=== PATIENT | female | born 1975 | race Caucasian/White ===

== ENCOUNTER → 2018-10-03 09:52 | Outpatient (CLI) | payer OTHER, SELFPAY ==
[2018-10-03 11:34] LABS: Add Manual Diff / Slide Review NO; Basophils Percent Auto 0.5 % (0-2); Eosinophils Percent Auto 1.8 % (2-4); Hematocrit 36.8 % (36-46); Hemoglobin 12.3 g/dL (12.0-16.0); Lymphocytes Percent Auto 27.1 % (25-40); Mean Corpuscular HGB Conc 33.5 % (30-36); Mean Corpuscular Hemoglobin 30.8 PG (26-34); Monocytes Percent Auto 7.3 % (3-14); Neutrophils Absolute Auto 3300 /uL (1500-7000); Neutrophils Percent Auto 63.3 % (50-75); Platelet Count 233 X10^3/uL (150-400); Red Cell Distribution Width 13.8 % (11.6-14.8); White Blood Cell Count 5.1 X10^3/uL (4.5-11.0)
[2018-10-03 11:42] LABS: Erythrocyte Sedimentation Rate 15 MM/HR (0-20)
[2018-10-03 12:10] LABS: Alanine Aminotransferase 28 IU/L (9-52); Aspartate Aminotransferase 21 IU/L (14-36)
[2018-10-03 12:41] LABS: TSH w/ Reflex to FT4 2.65 uIU/mL (0.47-4.68)
== END ==
PROVIDERS: Family Provider Family Medicine; PCP Family Medicine; Visit Provider Registered Nurse
DX: L50.1 Idiopathic urticaria (principal)
CPT/HCPCS: 36415; 84443; 84450; 84460; 85025; 85651

== ENCOUNTER → 2018-10-19 11:00 | Outpatient (CLI) | payer OTHER, SELFPAY | PROVIDERS: PCP Family Medicine; Visit Provider Dermatology | DX: L50.8 Other urticaria (principal); Z79.899 Other long term (current) drug therapy | CPT/HCPCS: 36415; 83516; 86343 ==

== ENCOUNTER → 2019-01-20 10:58 | Outpatient (CLI) | payer OTHER, SELFPAY ==
--- NOTE | 2019-01-20 | DI.MG.S_ITS ---
BILATERAL DIGITAL SCREENING MAMMOGRAM 3D/2D WITH CAD: 01/20/2019 CLINICAL: Routine screening. Family history of breast cancer. Comparison is made to exams dated: 01/17/2018 mammogram, 12/29/2016 mammogram - [facility], and 12/22/2015 mammogram - [facility]. The tissue of both breasts is heterogeneously dense. This may lower the sensitivity of mammography. Current study was also evaluated with a Computer Aided Detection (CAD) system. No significant masses, calcifications, or other findings are seen in either breast. There has been no significant interval change. IMPRESSION: NEGATIVE There is no mammographic evidence of malignancy. A 1 year screening mammogram is recommended. This exam was interpreted at Station ID: [id number]. NOTE: For mammograms, a report in lay terms will be sent to the patient. Approximately 15% of breast malignancies will not be visualized mammographically. In the management of a palpable breast mass, a negative mammogram must not discourage biopsy of a clinically suspicious lesion. Electronically Signed By: Shayy berman/alyssa:01/20/2019 11:30:51 copy to: GUICHO DARLING letter sent: Normal Exam ACR BI-RADS Category 1: Negative 3341F
== END ==
PROVIDERS: PCP Family Medicine; Visit Provider Family Medicine
DX: Z12.31 Encounter for screening mammogram for malignant neoplasm of breast (principal); Z80.3 Family history of malignant neoplasm of breast
CPT/HCPCS: 77063; 77067

== ENCOUNTER → 2019-10-30 09:09 | Outpatient (CLI) | payer OTHER, SELFPAY ==
--- NOTE | 2019-10-30 09:10 | DI.US.S_ITS ---
PROCEDURE: US PELVIC COMPLETE INDICATIONS: PELVIC AND PERINEAL PAIN TECHNIQUE: Real-time scanning was performed of the pelvic organs, with image documentation. Additional endovaginal scanning was necessary due to incomplete visualization of the adnexal and endometrial structures by transabdominal scanning. COMPARISON: None. FINDINGS: Transabdominal scanning: Limited scanning through the kidneys shows no hydronephrosis. No pathologic free abdominal or pelvic fluid. Endovaginal scanning: Uterus: Uterus is normal in size at 8.9 x 4.8 x 4.6 cm. The endometrium measures 7 mm in combined thickness. Ovaries: Right ovary measures 3.7 x 1.7 x 1.3 cm. Left ovary measures 2.7 x 2.0 x 1.2 cm. There is a 1.8 cm avascular hypoechoic cyst in the left ovary with internal echoes and thin lacelike septations. This likely represents a hemorrhagic cyst/physiologic cyst. No internal solid components or mural nodules. IMPRESSION: Likely 1.8 cm hemorrhagic/physiologic cyst in the left ovary. Otherwise, unremarkable sonographic evaluation of the uterus and ovaries. Dictated by: Subhash Olsen M.D. on 10/30/2019 at 13:24 Approved by: Subhash lOsen M.D. on 10/30/2019 at 13:43
== END ==
PROVIDERS: PCP Family Medicine; Visit Provider Family Medicine
DX: R10.2 Pelvic and perineal pain (principal); N83.202 Unspecified ovarian cyst, left side
CPT/HCPCS: 76830; 76856

== ENCOUNTER → 2019-11-04 11:47 | Outpatient (CLI) | payer OTHER, SELFPAY ==
--- NOTE | 2019-11-04 11:54 | DI.RAD.S_ITS ---
PROCEDURE: XR PELVIS 1-2V INDICATIONS: low back/pelvic pain TECHNIQUE: Single frontal view of the pelvis acquired. COMPARISON: None. FINDINGS: Bones: No fractures or dislocations. No suspicious bony lesions. Soft tissues: Visualized bowel gas pattern is normal. No suspicious soft tissue calcifications. IMPRESSION: No trauma found. Dictated by: Lacho Richter M.D. on 11/04/2019 at 14:18 Approved by: Lacho Richter M.D. on 11/04/2019 at 14:18
== END ==
PROVIDERS: PCP Family Medicine; Referring Provider Family Medicine; Visit Provider Family Medicine
DX: M54.5 Low back pain (principal); R10.2 Pelvic and perineal pain
CPT/HCPCS: 72170

== ENCOUNTER 2019-11-14 09:33 | Emergency (ER) | payer OTHER, SELFPAY ==
--- NOTE | 2019-11-14 09:42 | DI.MRI.S_ITS ---
PROCEDURE: MR LUMBAR SPINE WO CON INDICATIONS: back pain w/ bilat radiation and inner thigh numbness TECHNIQUE: Noncontrast sagittal T1 spin echo and T2 fast echo, sagittal STIR, axial T1 and T2 fast spin echo through the lumbar spine. In cases with scoliosis, additional coronal T2 fast spin echo may be performed. COMPARISON: [facility], CT, ABDOMEN/PELVIS WITH CONTRAST, 03/18/2017, 16:57. FINDINGS: Image quality: Excellent. Alignment and Curvature: There is normal bony alignment. Bone Marrow: Marrow is of normal overall signal. No acute vertebral body compression fractures. Spinal Cord: Conus medullaris terminates at the T12 level. Visualized cord demonstrates normal signal and size. Paraspinous Soft Tissues: No paravertebral masses. L1-L2: Normal appearance. L2-L3: Normal appearance. L3-L4: Mild loss of disc height and disc desiccation. There is posterior disc bulge. The central canal is minimally narrowed. Moderate left foraminal stenosis. No right foraminal stenosis. L4-L5: Mild loss of disc height and disc desiccation. There is mild posterior disc bulge. The central canal is minimally narrowed. No foraminal stenosis. L5-S1: Preserved disc height. Mild disc desiccation. There is diffuse posterior disc bulge. There is right posterior lateral annular fissure. Mild right facet arthropathy. The central canal is patent. Mild right foraminal stenosis. Mild left foraminal stenosis. IMPRESSION: 1. Multilevel degenerative disc disease and facet arthropathy as described. 2. Minimal central canal stenosis. 3. Moderate foraminal stenosis at L3-L4 mild left and mild foraminal stenosis at L5-S1 on the right. Dictated by: Chan Thomason M.D. on 11/14/2019 at 15:46 Approved by: Chan Thomason M.D. on 11/14/2019 at 15:54
[2019-11-14 09:45] VITALS: BP 139/71; PULSE 85; RESP 16; TEMP 37.4; O2SAT 99
[2019-11-14] MEDS: ONDANSETRON 4 MG/2 ML INJ IV (09:53)
[2019-11-14] MEDS: MORPHINE 4 MG/ML INJ IV ×2 (09:53→14:49)
[2019-11-14] MEDS: methylPREDNISolone 125 MG/2 ML VIAL IV (09:53)
--- NOTE | 2019-11-14 10:13 | DI.MRI.S_ITS ---
PROCEDURE: MR PELVIS WO CON INDICATIONS: low back pain w/ radiation to front TECHNIQUE: Coronal, axial, and sagittal T1 and fluid sensitive imaging was performed of the entire pelvis without contrast. COMPARISON: [facility], MR, MR LUMBAR SPINE WO CON, 11/14/2019, 15:01. [facility], US, US PELVIC COMPLETE, 10/30/2019, 9:40. [facility], CT, ABDOMEN/PELVIS WITH CONTRAST, 03/18/2017, 16:57. FINDINGS: Image quality: Diagnostic. Bones: No acute fracture, dislocation, or suspicious osseous lesion is identified involving the osseous structures of the pelvis. No significant degenerative changes of the bilateral hips are present. There are mild degenerative changes of the pubis symphysis. No significant degenerative changes of the sacroiliac joints are appreciated. No joint effusions are identified. Soft tissues: The sciatic nerves are not well seen on this examination; however, are normal in size and signal without extrinsic mass effect appreciated along their expected course. The imaged bowel loops do not appear to be dilated. The uterus and ovaries are not enlarged. A 2.2 cm left ovarian cyst may be present. Small follicles are present bilaterally. A trace of free fluid within the pelvis is likely physiologic. No loculated fluid collections or large collections of free air are identified. Urinary bladder is decompressed and not well evaluated. No significant bladder wall thickening is identified. The imaged muscles of the pelvis are within normal limits without atrophy. No obvious areas of tendinopathy are appreciated involving the upper thighs. IMPRESSION: 1. No acute abnormalities within the pelvis. 2. The course of the sciatic nerves appears to be within normal limits. 3. Mild degenerative changes of the pubis symphysis. 4. Small left ovarian cyst is of doubtful significance. 5. Minimal free fluid within the pelvis is felt to be physiologic. Dictated by: Faisal Shin M.D. on 11/14/2019 at 15:38 Approved by: Faisal Shin M.D. on 11/14/2019 at 15:45
--- NOTE | 2019-11-14 10:19 | ED_ITS ---
HPI - Back Pain/Injury General Chief Complaint: Back Pain/Injury Stated Complaint: PER [facility] MRI Time Seen by Provider: 11/14/19 09:45 Source: patient Limitations: no limitations History of Present Illness HPI Narrative: CC: Severe lower back pain History of present illness: The patient is a 44-year-old female who presents to the emergency department with severe low back pain radiating into her left hip and leg with weakness. The patient was seen by physical therapy yesterday and sent to the emergency department for an MRI before they would proceed with any further evaluation and therapy. The patient needs to be evaluated for a po ssible stenosis and radiculopathy. The patient states that the pain radiates into both buttocks 1 day the right side the other the left side. The pain is sharp and excruciating. It feels as though it is a lightening bolt. She has only been taken ibuprofen for the pain and discomfort which was started in August which he does not relieve the pain and discomfort. Her pain and discomfort started in August and has just gotten progressively worse. She denies any fall or injury. She has had no incontinence of urine or stool. She has not had any loss of sensation over her perineum or around her rectum. At time she is afraid to have a bowel movement because she has severe pain when pushing. She denies any fall or injury. She states that in June she did fall on some stairs approximately 3 steps. She denies any recent fever chills sweats cough shortness of breath chest pain nausea vomiting diarrhea urinary symptoms. Related Data Home Medications Medication Instructions Recorded Confirmed multivitamin [Multiple Vitamins] 1 tab PO DAILY #0 tab 06/26/16 11/14/19 Collagen Supplement 1 dose PO DAILY 11/14/19 11/14/19 cholecalciferol (vitamin D3) 6,000 unit PO DAILY 11/14/19 11/14/19 [Vitamin D3] ibuprofen 200 mg PO PRN PRN 11/14/19 11/14/19 Previous Rx's Medication Instructions Recorded cyclobenzaprine 10 mg PO TID PRN #15 tab 11/14/19 hydrocodone-acetaminophen [[place]] 1 tab PO Q4-6H PRN #12 tab 11/14/19 naproxen [Naprosyn] 500 mg PO BID PRN #20 tab 11/14/19 Allergies Allergy/AdvReac Type Severity Reaction Status Date / Time No Known Drug Allergies Allergy Verified 11/14/19 09:48 Review of Systems Review of Systems Narrative: All review of systems were negative except for those mentioned in the history of present illness. Patient History Medical History Abnormal Pap smear of cervix (Resolved 2012) Acne (Chronic 1989) Chicken pox (Resolved 1979) Chronic headaches (Chronic 2014) Foot pain (Chronic 2015) Hayfever (Chronic 2012) HPV (human papilloma virus) infection (Resolved 2012) L5 vertebral fracture (Acute) Skin cancer (Resolved) Surgical History Anesthesia (Resolved) History of abdominoplasty (Resolved 07/08/13) History of sinus surgery (Resolved 03/18/13) Status post delivery (Resolved 06/28/11) Family History Brother No problems noted. Father Lung disease Smoker Grandfather Suicide Grandmother Liver cancer Hepatitis C Mother No problems noted. Grandfather Lung disease Smoker Grandmother Lung disease Smoker Sister No problems noted. Sister No problems noted. Sister No problems noted. Family/Other No problems noted. Social History Smoking Status: Former smoker alcohol intake: current (occasionally) substance use type: does not use Smoking Status: Former smoker alcohol intake frequency: 0-2 drinks per day Substance Use Type: does not use Exam Narrative Exam Narrative: PHYSICAL EXAM: CONSTITUTIONAL: Awake, Alert, Oriented, Coherent, Cooperative in moderate distress. The patient is lying supine in bed. For her exam and examination of her back she rolls over to the side rather than sitting upper standing. Standing causes severe pain and discomfort. She appears to have been crying. She does not look toxic. HEAD: AT/NC EENT: PERRL, FROM of eyes, no discharge, NECK: Supple, no obvious JVD, Trachea is midline without stridor, no palpable LN or masses. SPINE: No gross deformity, no palpable tenderness of the cervical, thoracic, lumbar or sacral spine. No CVA tenderness. No tenderness on palpation of the paraspinous muscles. There was no tenderness to palpation over the right her left SI joints or sciatic notches. THORAX: No deformity, retractions, chest wall tenderness, subcutaneous air or crepitice. LUNGS: are clear with symmetrical breath sounds without respiratory distress HEART: Normal heart tones, regular rhythm and rate without murmur. ABDOMEN: Soft, non-tender, normal bowel sounds without guarding, rebound, rigidity or palpable mass EXTREMITIES: No edema, cyanosis, deformity or tenderness involving her legs. The patient has a negative straight leg raise bilaterally. She has full range of motion of her hips to flexion extension internal external rotation abduction and adduction bilaterally. Deep tendon reflexes were 2+ bilaterally. The patient has good sensation perirectally and over her perineum with the ability to squeeze her buttocks together. The patient has some mild weakness on the left knee dorsiflexion of her feet and questionable plantar flexion. SKIN: No rash, bruising, petechiae or purpura. NEURO: Awake, alert, oriented, conversive, cooperative and very uncomfortable. There is no focal facial asymmetry/ cranial nerves II-XII are symmetrical moves all 4 extremities. Initial Vital Signs Initial Vital Signs: Vital Signs Temperature 99.4 F 11/14/19 09:45 Pulse Rate 85 11/14/19 09:45 Respiratory Rate 16 11/14/19 09:45 Blood Pressure 139/71 11/14/19 09:45 Pulse Oximetry 99 11/14/19 09:45 Course Course Course Narrative: The last 2 days the patient has been evaluated by physical therapy. Today physical therapy stated that her pain and discomfort was severe and suggestive of a radiculopathy. She was sent to the emergency department stating that they could not perform any further procedures without obtaining an MRI to check the status of her back spinal cord and discs. Consequently the patient was sent to the emergency department and an MRI has been ordered. 174: The MRI of the pelvis reveals: 1. No acute abnormalities within the pelvis. 2. The course of the sciatic nerves appear to be within normal limits 3. Mild degenerative changes of the pubis symphysis 4. Small left ovarian cyst is of doubtful significance. 5. Minimal free fluid within the pelvis is felt to be physiologic. MRI of the lumbar spine: Normal bony alignment no acute vertebral body compression fractures, conus medullaris terminates at the T12 level visualized cord demonstrates normal signal in size. No paravertebral masses, L1-L2 normal appearance, L2-L3 normal appearance, L3-L4 reveals mild loss of disc heights and disc desiccation. There is posterior disc bulge. The central canal is minimally narrowed. Moderate left foraminal stenosis no right foraminal stenosis. L4-L5: Mild loss of disc height and disc desiccation. There is mild posterior disc bulge. The central canal is minimally narrowed old no foraminal stenosis. L5-S1 preserved disc height mild disc desiccation. There is diffuse posterior disc bulge there is right posterior lateral annular fissure. Mild right facet arthropathy the central canal is patent. Mild right foraminal stenosis mild left foraminal stenosis. Impression: 1. Multilevel degenerative disc disease and facet arthropathy 2. Minimal central canal stenosis 3. Moderate foraminal stenosis at L3-L4 mild left and mild foraminal stenosis at L5-S1 on the right. The patient will be discharged home and advised to follow-up with her primary care physician. She will be given a prescription for Naprosyn, Percocet, and cyclobenzaprine. She will will be advised to contact her primary care physician for further evaluation According to the nurses the patient has made multiple visits ambulating without difficulty to the bathroom. The patient will be discharged home. Orders Ordered: Discontinued Medications Ketorolac Tromethamine (Toradol) 30 mg IV NOW ONE Stop: 11/14/19 14:31 Last Admin: 11/14/19 14:36 Dose: 30 mg Documented by: ZONIA Methylprednisolone (Solu-Medrol 125 Mg Vial) 125 mg IV NOW ONE Stop: 11/14/19 09:44 Last Admin: 11/14/19 09:53 Dose: 125 mg Documented by: CATHERINE Morphine Sulfate (Morphine) 4 mg IV NOW ONE Stop: 11/14/19 09:45 Last Admin: 11/14/19 09:53 Dose: 4 mg Documented by: CATHERINE Morphine Sulfate (Morphine) 4 mg IV NOW ONE Stop: 11/14/19 14:32 Last Admin: 11/14/19 14:49 Dose: 4 mg Documented by: ZONIA Ondansetron HCl (Zofran) 4 mg IV NOW ONE Stop: 11/14/19 09:44 Last Admin: 11/14/19 09:53 Dose: 4 mg Documented by: CATHERINE Vital Signs Vital signs: Vital Signs - 8 hr 11/14/19 11:06 11/14/19 13:44 11/14/19 15:04 Pulse Rate 69 67 85 Respiratory Rate 18 16 18 Blood Pressure [Right Arm] 116/60 134/69 Pulse Oximetry 100 100 100 11/14/19 16:05 Pulse Rate 87 Respiratory Rate Blood Pressure [Right Arm] 141/73 H Pulse Oximetry 98 MDM - Back Pain/Injury Lab Data Labs: Lab Results 11/14/19 Range/Units 10:20 Urine RBC None seen (0-5/HPF) Urine WBC None seen (0-5/HPF) Urine Bacteria None seen (None) Ur Culture Indicated? Cult not indicated Micro UA Comment Microscopic normal Point of Care Testing Test Results Negative Urine Dip Bedside Urine Glucose Negative Bedside Urine Bilirubin - Negative Bedside Urine Ketone - Negative Urine Specific [place] 1.005 Bedside Urine Occult Blood - Negative Bedside Urine pH 6.5 Bedside Urine Protein - Negative Bedside Urine Urobilinogen - Negative Bedside Urine Nitrite - Negative Bedside Urine Leukocytes + 70 Esterase Discharge Plan Departure Patient Disposition: Home Clinical Impression: Spinal stenosis of lumbosacral region Low back pain Qualifiers: Chronicity: unspecified Back pain laterality: midline Sciatica presence: without sciatica Qualified Code(s): M54.5 - Low back pain Discharge Date/Time: 11/14/19 19:07 Instructions: DI for Low Back Pain, DI for Sciatica, DI for Spinal Stenosis Activity Restrictions/Additional Instructions: Follow-up with your primary care physician for further evaluation and continued physical therapy. If necessary use a walker to ambulate if you develop with sudden weakness and pain in your back. Reason take the Naprosyn Flexeril and [place] for severe pain and discomfort as prescribed. If you develop weakness loss of sensation worsening pain you need to return to the emergency department for re-evaluation. Prescriptions: New naproxen [Naprosyn] 500 mg tablet 500 mg PO BID PRN (Reason: pain) Qty: 20 RF: 0 cyclobenzaprine 10 mg tablet 10 mg PO TID PRN (Reason: muscle spasm) Qty: 15 RF: 0 hydrocodone-acetaminophen [[place]] 5-325 mg tablet 1 tab PO Q4-6H PRN (Reason: pain) Qty: 12 RF: 0 No Action multivitamin [Multiple Vitamins] 1 EACH tablet 1 tab PO DAILY Qty: 0 RF: 0 ibuprofen 200 mg Tablet 200 mg PO PRN PRN (Reason: pain) RF: 0 cholecalciferol (vitamin D3) [Vitamin D3] 50 mcg (2,000 unit) Capsule 6,000 unit PO DAILY RF: 0 Collagen Supplement 1 dose PO DAILY RF: 0 Referrals: Ivette Armenta DO [Primary Care Provider] -
[2019-11-14 11:06] VITALS: PULSE 69; RESP 18; O2SAT 100
--- NOTE | 2019-11-14 11:20 | PC.NURSE ---
Sent from Physical therapy office / Provider office for MRI. Pt states PT felt her right leg was weaker than the left. Pt feels some numbness on inner thighs. Pain worse w/ standing. Able to use walker to off load.
[2019-11-14 12:52] LABS: Bacteria Urine None Seen; RBC Urine None Seen (0-5/HPF); WBC Urine None Seen (0-5/HPF)
[2019-11-14 13:14] LABS: Culture Indicated Urine Cult Not Indicated; Urine Comments Microscopic Normal
[2019-11-14 13:44] VITALS: BP 116/60; PULSE 67; RESP 16; O2SAT 100
[2019-11-14] MEDS: KETOROLAC 60 MG/2 ML VIAL 30 MG IV (14:36)
[2019-11-14 15:04] VITALS: BP 134/69; PULSE 85; RESP 18; O2SAT 100
--- NOTE | 2019-11-14 15:04 | PC.NURSE ---
Pt taken to MRI in WC
[2019-11-14 16:05] VITALS: BP 141/73; PULSE 87; O2SAT 98
[2019-11-14 18:26] VITALS: BP 113/61; PULSE 82; O2SAT 99
== END 2019-11-14 19:07 | disposition home or self-care (01) ==
PROVIDERS: Emergency Provider Emergency Medicine; PCP Family Medicine
DX: M48.07 Spinal stenosis, lumbosacral region (principal); M54.5 Low back pain
CPT/HCPCS: 36415; 72148; 72195; 81003; 81015; 81025; 96374; 96375; 96376; 99284; J1885; J2270; J2405; J2930

== ENCOUNTER → 2020-02-28 10:48 | Outpatient (CLI) | payer OTHER, SELFPAY ==
--- NOTE | 2020-02-28 | DI.MG.S_ITS ---
BILATERAL DIGITAL SCREENING MAMMOGRAM 3D/2D WITH CAD: 02/28/2020 CLINICAL: Routine screening. Family history of breast cancer. Comparison is made to exams dated: 01/20/2019 mammogram, 01/17/2018 mammogram, and 12/29/2016 mammogram - [facility]. The tissue of both breasts is heterogeneously dense. This may lower the sensitivity of mammography. Current study was also evaluated with a Computer Aided Detection (CAD) system. There is possible architectural distortion in the right breast middle depth lateral region seen on the craniocaudal view only. No other significant masses, calcifications, or other findings are seen in either breast. IMPRESSION: INCOMPLETE: NEEDS ADDITIONAL IMAGING EVALUATION The possible architectural distortion in the right breast is indeterminate. Additional views with possible ultrasound are recommended. This exam was interpreted at Station ID: [id number]. NOTE: For mammograms, a report in lay terms will be sent to the patient. Approximately 15% of breast malignancies will not be visualized mammographically. In the management of a palpable breast mass, a negative mammogram must not discourage biopsy of a clinically suspicious lesion. Electronically Signed By: Subhash Olsen M.D. at/:03/01/2020 07:59:45 copy to: GUICHO DARLING letter sent: Additional Imaging Needed ACR BI-RADS Category 0: Incomplete 3340F
== END ==
PROVIDERS: PCP Family Medicine; Referring Provider Family Medicine; Visit Provider Family Medicine
DX: Z12.31 Encounter for screening mammogram for malignant neoplasm of breast (principal); Z80.3 Family history of malignant neoplasm of breast
CPT/HCPCS: 77063; 77067

== ENCOUNTER → 2020-03-12 08:06 | Outpatient (CLI) | payer OTHER, SELFPAY ==
--- NOTE | 2020-03-12 08:07 | DI.MG.S_ITS ---
UNILATERAL RIGHT DIGITAL DIAGNOSTIC MAMMOGRAM 3D/2D WITH ADDITIONAL VIEWS: 03/12/2020 CLINICAL: Additional evaluation requested from prior study. Comparison is made to exams dated: 02/28/2020 mammogram, 01/20/2019 mammogram, 01/17/2018 mammogram, 07/23/2017 mammogram, 01/19/2017 mammogram, and 08/04/2016 mammogram - [facility]. The tissue of right breast is heterogeneously dense. This may lower the sensitivity of mammography. There is a possible benign architectural distortion in the right breast middle depth lateral region seen on the craniocaudal view only. This is not seen in additional views. No other significant masses or calcifications are seen in the breast. IMPRESSION: NEGATIVE There is no mammographic evidence of malignancy. Possible architectural distortion does not persist on additional views. A 1 year screening mammogram is recommended. This exam was interpreted at Station ID: [id number]. NOTE: For mammograms, a report in lay terms will be sent to the patient. Approximately 15% of breast malignancies will not be visualized mammographically. In the management of a palpable breast mass, a negative mammogram must not discourage biopsy of a clinically suspicious lesion. Findings conveyed to the patient. Electronically Signed By: Clem Wilson M.D. slc/:03/12/2020 08:31:54 copy to: GUICHO DARLING letter sent: Normal Exam ACR BI-RADS Category 1: Negative [id number]
== END ==
PROVIDERS: PCP Family Medicine; Referring Provider Family Medicine; Visit Provider Family Medicine
DX: R92.8 Other abnormal and inconclusive findings on diagnostic imaging of breast (principal)
CPT/HCPCS: 77065; G0279